=== PATIENT | male | born 1985 ===

== ENCOUNTER 2024-01-01 10:12 | Emergency (ER) | payer BC, SELFPAY ==
--- NOTE | 2024-01-01 10:33 | ED.GENADULT ---
HPI - General Adult General Chief complaint: Eye Problems Stated complaint: eye prob Time Seen by Provider: 01/01/24 10:33 Source: patient Mode of arrival: ambulatory Limitations: no limitations History of Present Illness HPI narrative: 38-year-old male patient presents to the [facility] with complaints of swelling and tenderness to left upper eyelid for the past 2 days. 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 Patient denies any discharge coming from the eye. Patient denies fevers, body aches or chills. Patient states he is allergic to cats and it started when he was around a cat so he assumed he might have gotten something in his eye. Denies any vision changes. Related Data Home Medications Medication Instructions Recorded Confirmed budesonide-formoterol HFA 80 2 puff inhalation BID 01/01/24 01/01/24 mcg-4.5 mcg/actuation aerosol inhaler bupropion HCl 150 mg 24 hr tablet, 150 mg PO DAILY 01/01/24 01/01/24 extended release testosterone enanthate 75 mg/0.5 75 mg subcut WEEKLY 01/01/24 01/01/24 mL subcutaneous auto-injector (Xyosted) valacyclovir 500 mg tablet 500 mg PO DAILY 01/01/24 01/01/24 Allergies Allergy/AdvReac Type Severity Reaction Status Date / Time No Known Allergies Allergy Verified 01/01/24 10:35 Review of Systems Review of Systems: CONSTITUTIONAL: Denies fever, chills, or sweats. EYES: Denies visual changes, redness, or discharge. Positive tenderness to left upper eyelid x2 days ENT: Denies rhinorrhea, congestion, sore throat, or otalgia. CARDIOVASCULAR: Denies chest pain, palpitations, or edema. RESPIRATORY: Denies cough or dyspnea. GASTROINTESTINAL: Denies abdominal pain, nausea, vomiting, or diarrhea. GENITOURINARY: Denies dysuria or hematuria. SKIN: Denies rash or itching. MUSCULOSKELETAL: Denies back pain, joint pain, or myalgia. NEUROLOGIC: Denies headache, numbness, or weakness. PSYCHIATRIC: Denies anxiety or depression. [facility] Past Medical History Medical History (Updated 01/01/24 @ 10:47 by CECILIA Soriano) Traumatic rupture of lumbar intervertebral disc Comments At the time of my signature I agree with nursing past medical history, surgical, social, and family history. There is no relevant family history pertinent to the presenting complaint. Exam Narrative: GENERAL: Well-appearing, well-nourished, and in no acute distress. HEAD: Normocephalic, atraumatic. EYES: PERRLA and EOMI.positive redness, swelling and tenderness noted to the left upper eyelid on the lateral side. on inversion of the left upper lid there is a hordeolum present. ENT: Nares clear, no rhinorrhea or epistaxis. Mucous membranes moist. NECK: Supple. No lymphadenopathy CHEST: Clear to auscultation. No respiratory distress. HEART: Regular rate and rhythm. No murmur heard. Normal peripheral pulses. ABDOMEN: Soft, nontender, nondistended, normal active bowel sounds. EXTREMITIES: Normal range of motion. No edema. SKIN: Warm, dry, no rash. NEURO: No focal deficits. Alert and oriented x3. Course Course Level of Care: Express Care Visit Vital Signs Vital signs: Vital Signs Temperature 36.5 C 01/01/24 10:39 Pulse Rate 55 L 01/01/24 10:39 Respiratory Rate 16 01/01/24 10:39 Blood Pressure 113/68 01/01/24 10:39 Pulse Oximetry 100 01/01/24 10:39 Oxygen Delivery Room Air 01/01/24 10:39 Temperature 36.5 C 01/01/24 10:39 Pulse Rate 55 L 01/01/24 10:39 Respiratory Rate 16 01/01/24 10:39 Blood Pressure 113/68 01/01/24 10:39 Pulse Oximetry 100 01/01/24 10:39 Oxygen Delivery Room Air 01/01/24 10:39 vital signs reviewed Medical Decision Making MDM Narrative Medical decision making narrative: Plan care for patient is to discharge home with antibiotic eye ointment and encourage warm compresses to the left upper lid to encourage the stye to pop. Discussed with patient he shoul
[2024-01-01 10:39] VITALS: BP 113/68; PULSE 55; RESP 16; TEMP 36.5; O2SAT 100
== END 2024-01-01 10:48 | disposition home or self-care (01) ==
PROVIDERS: Emergency Provider Nurse Practitioner Family; PCP Family Medicine
DX: H00.014 Hordeolum externum left upper eyelid (principal)
CPT/HCPCS: 99213; G0463